=== PATIENT | male | born 2000 | race Caucasian/White ===

== ENCOUNTER 2020-04-21 00:43 | Emergency (ER) | payer OTHER ==
[~2020-04-21 00:43] MED LIST: DICYCLOMINE HCL20 MG PO; IBUPROFEN400 MG PO; OMEPRAZOLE40 MG PO; ONDANSETRON HCL4 MG PO; PROMETHAZINE12.5 M1 PO
[2020-04-21 02:51] LABS: HEMOGLOBIN 16.3 gm/dl (14.0-17.5); RED BLOOD COUNT 5.37 M/UL (4.20-5.50); WHITE BLOOD COUNT 11.2 K/UL (4.5-11.0)
[2020-04-21 03:00] LABS: BUN/CREATININE RATIO 15 (0-10)
== END 2020-04-21 09:30 | disposition home or self-care (01) ==
LOC: ER1 00:43
PROVIDERS: Emergency Medicine
DX: F10.129 Alcohol abuse with intoxication, unspecified (principal); Y90.8 Blood alcohol level of 240 mg/100 ml or more
CPT/HCPCS: 80048; 85025; 99284; G0480